=== PATIENT | female | born 1975 | race Caucasian/White ===

== ENCOUNTER 2017-03-05 18:43 | Emergency (ER) | payer MEDICAID ==
[2017-03-05] MEDS ORDERED: NS 1,000 ML IV ONE (19:24)
[2017-03-05] MEDS ORDERED: fentaNYL 100 MCG/2 ML INJ IVP ONE (19:24)
--- NOTE | 2017-03-05 19:30 | EDPHY ---
HPI/HX/ROS/PE/MDM Narrative: CHIEF COMPLAINT: Nausea, diarrhea, chills HISTORY OF PRESENT ILLNESS: The patient is a 41 y/o female with a history of anxiety and fibromyalgia complaining of nausea, diarrhea, and chills since taking a single dose of naltrexone on , 4 days ago. Patient has been on chronic oxycodone for pain management of her fibromyalgia for quite some time ; her stage setting painter apprentice added naltrexone on to help control inflammation from her fibromyalgia. she took her first dose of naltrexone and several hours later also took her oxycodone to avoid withdrawal. She began experiencing stomach cramps, diarrhea, and shakiness. Her symptoms have continued with chills and hot and cold flashes. She called her doctor again today who directed her to the ED. Over the last two hours her symptoms have gotten worse. She has associated neck pain. She denies cough, headache, or other associated symptoms. She denies history of diabetes or illicit drug use. She had the flu vaccine. She should be having her menses soon. She does not use control. No fever, chest pain, shortness of breath, palpitations, vomiting, urinary complaints, headache, lightheadedness. Reports no blood in the diarrhea. REVIEW OF SYSTEMS: Aside from elements discussed in the HPI, a comprehensive 10-point review of systems was reviewed and is negative. PAST MEDICAL HISTORY: Fibromyalgia, anxiety SOCIAL HISTORY: Daughter at bedside, employed, lives in [place] VITAL SIGNS: Reviewed by me GENERAL: Tremulous, diaphoretic, well-developed, well-nourished, resting comfortably in no respiratory distress. HEENT: Atraumatic. Eyes: No icterus, no injection. Mouth: moist mucous membranes. No erythema or lesions. Neck: supple with no adenopathy. LUNGS: Clear to auscultation bilaterally, no wheezes, rhonchi or rales. CARDIAC: Regular rate and rhythm, no rubs, murmurs or gallops. ABDOMEN: Mild diffuse tenderness, focal tenderness in the left lower quadrant, soft, nondistended, bowel sounds normal. BACK: No CVA tenderness. EXTREMITIES: No trauma. No edema. Range of motion is normal throughout. NEURO: Alert and oriented, grossly nonfocal. SKIN: Clammy, no rash. PSYCHIATRIC: Normal mentation, no agitation. (Mayra De Souza) ED Course: The chronic pain patient on chronic opiates presents with nausea, diarrhea, and chills after a taking a dose of naltrexone on . On exam she is clammy, diaphoretic, and tremulous with a diffuse abdominal tenderness, focal in the left lower quadrant. IV was placed. Patient received Zofran. Laboratory evaluation demonstrates a white count of 11,500. Electrolytes are unremarkable. Urinalysis demonstrates nitrates, 4+ bacteria, 15-25 white cells per high-power field. Patient denies complaints related to urinary tract infection. She states that she urinates frequently but that is not unusual for her. She denies any dysuria. She has no flank pain. On re-examination the patient continues to have rather focal left lower quadrant tenderness as well as development of some right lower quadrant tenderness. CT scan abdomen pelvis was obtained. Patient received a dose of ciprofloxacin in the emergency department. She notes that she has multiple allergies including erythromycin and penicillins although she cannot specifically tell me what happens when she takes either of those medications the, other than she thinks that cause a rash. Patient's care was assumed by Dr. Pastora Bautista at 9:20 p.m.. We are awaiting further evaluation including CT scan abdomen pelvis as well as lactic acid. (Mayra De Souza) 2200: I was asked to follow up this patient's CT scan results. The CT scan abdomen pelvis with IV contrast shows no acute inflammatory process. Has a normal appendix. Significant stool burden on the right ascending colon and transverse colon. Additionally there are liver lesions that appear to be hemangiomas but need an outpatient follow-up ultrasound or MRI of the liver. I have discussed this with the patient. She distally has a UTI on her lab work will treat for UTI. Most likely cause of abdominal pain is UTI and constipation. Normal appendix. Additionally I discussed this with the patient. Return precautions given she understands return emergency room if she develops worsening abdominal pain fever vomiting. (Ananth Silva) - Data Points Laboratory Results: Laboratory Results 03/05/17 19:54 03/05/17 19:54 03/05/17 03/05/17 03/05/17 21:50 21:50 21:26 WBC RBC Hgb Hct MCV MCH MCHC RDW Plt Count MPV Neut % (Auto) Lymph % (Auto) [place] % (Auto) Eos % (Auto) Baso % (Auto) Nucleat RBC Rel Count Absolute Neuts (auto) Absolute Lymphs (auto) Absolute Monos (auto) Absolute Eos (auto) Absolute Basos (auto) Absolute Nucleated RBC Immature Gran % Immature Gran # PT Pending INR Pending APTT Pending VBG Lactic Acid 0.8 mmol/L mmol/L (0.7-2.1) Sodium Potassium Chloride Carbon Dioxide Anion Gap BUN Creatinine Estimated GFR Glucose Calcium Total Bilirubin Pending Conjugated Bilirubin Unconjugated Bilirubin AST ALT Alkaline Phosphatase Total Protein Albumin Lipase Beta HCG, Qual Urine Color Urine Appearance Urine pH Ur Specific [place] Urine Protein Urine Ketones Urine Blood Urine Nitrate Urine Bilirubin Urine Urobilinogen Ur Leukocyte Esterase Urine RBC Urine WBC Ur Epithelial Cells Urine Bacteria Urine Mucus Urine Glucose 03/05/17 03/05/17 03/05/17 20:18 19:54 19:54 WBC RBC Hgb Hct MCV MCH MCHC RDW Plt Count MPV Neut % (Auto) Lymph % (Auto) [place] % (Auto) Eos % (Auto) Baso % (Auto) Nucleat RBC Rel Count Absolute Neuts (auto) Absolute Lymphs (auto) Absolute Monos (auto) Absolute Eos (auto) Absolute Basos (auto) Absolute Nucleated RBC Immature Gran % Immature Gran # PT INR APTT VBG Lactic Acid Sodium 141 mEq/L mEq/L (134-144) Potassium 3.8 mEq/L mEq/L (3.5-5.2) Chloride 101 mEq/L mEq/L (97-110) Carbon Dioxide 25 mEq/l mEq/l (22-31) Anion Gap 15 mEq/L mEq/L (8-16) BUN 17 mg/dL mg/dL (7-23) Creatinine 0.9 mg/dL mg/dL (0.6-1.0) Estimated GFR > 60 Glucose 110 mg/dL H mg/dL (70-100) Calcium 9.9 mg/dL mg/dL (8.5-10.4) Total Bilirubin 0.4 mg/dL mg/dL (0.1-1.4) Conjugated Bilirubin 0.3 mg/dL mg/dL (0.0-0.5) Unconjugated Bilirubin 0.1 mg/dL mg/dL (0.0-1.1) AST 18 IU/L IU/L (14-46) ALT 33 IU/L IU/L (9-52) Alkaline Phosphatase 90 IU/L IU/L (38-126) Total Protein 8.2 g/dL g/dL (6.3-8.2) Albumin 4.4 g/dL g/dL (3.5-5.0) Lipase 73 IU/L IU/L (23-300) Beta HCG, Qual NEGATIVE Urine Color YELLOW Urine Appearance HAZY Urine pH 6.0 (5.0-7.5) Ur Specific [place] 1.026 (1.002-1.030) Urine Protein NEGATIVE (NEGATIVE) Urine Ketones NEGATIVE (NEGATIVE) Urine Blood NEGATIVE (NEGATIVE) Urine Nitrate POSITIVE H (NEGATIVE) Urine Bilirubin NEGATIVE (NEGATIVE) Urine Urobilinogen NEGATIVE EU EU (0.2-1.0) Ur Leukocyte Esterase 1+ H (NEGATIVE) Urine RBC 1-3 /hpf /hpf (0-3) Urine WBC 15-25 /hpf H /hpf (0-3) Ur Epithelial Cells TRACE /lpf /lpf (NONE-1+) Urine Bacteria 4+ /hpf H /hpf (NONE SEEN) Urine Mucus TRACE /lpf /lpf (NONE-1+) Urine Glucose NEGATIVE (NEGATIVE) 03/05/17 19:54 WBC 11.51 10^3/uL H 10^3/uL (3.80-9.50) RBC 4.64 10^6/uL 10^6/uL (4.18-5.33) Hgb 14.0 g/dL g/dL (12.6-16.3) Hct 41.4 % % (38.0-47.0) MCV 89.2 fL fL (81.5-99.8) MCH 30.2 pg pg (27.9-34.1) MCHC 33.8 g/dL g/dL (32.4-36.7) RDW 13.2 % % (11.5-15.2) Plt Count 292 10^3/uL 10^3/uL (150-400) MPV 10.8 fL fL (8.7-11.7) Neut % (Auto) 64.8 % % (39.3-74.2) Lymph % (Auto) 27.7 % % (15.0-45.0) [place] % (Auto) 5.0 % % (4.5-13.0) Eos % (Auto) 1.6 % % (0.6-7.6) Baso % (Auto) 0.6 % % (0.3-1.7) Nucleat RBC Rel Count 0.0 % % (0.0-0.2) Absolute Neuts (auto) 7.47 10^3/uL H 10^3/uL (1.70-6.50) Absolute Lymphs (auto) 3.19 10^3/uL H 10^3/uL (1.00-3.00) Absolute Monos (auto) 0.57 10^3/uL 10^3/uL (0.30-0.80) Absolute Eos (auto) 0.18 10^3/uL 10^3/uL (0.03-0.40) Absolute Basos (auto) 0.07 10^3/uL 10^3/uL (0.02-0.10) Absolute Nucleated RBC 0.00 10^3/uL 10^3/uL (0-0.01) Immature Gran % 0.3 % % (0.0-1.1) Immature Gran # 0.03 10^3/uL 10^3/uL (0.00-0.10) PT INR APTT VBG Lactic Acid Sodium Potassium Chloride Carbon Dioxide Anion Gap BUN Creatinine Estimated GFR Glucose Calcium Total Bilirubin Conjugated Bilirubin Unconjugated Bilirubin AST ALT Alkaline Phosphatase Total Protein Albumin Lipase Beta HCG, Qual Urine Color Urine Appearance Urine pH Ur Specific [place] Urine Protein Urine Ketones Urine Blood Urine Nitrate Urine Bilirubin Urine Urobilinogen Ur Leukocyte Esterase Urine RBC Urine WBC Ur Epithelial Cells Urine Bacteria Urine Mucus Urine Glucose Medications Given: Discontinued Medications Cephalexin (Keflex 500 Mg Prepack#4) 1 btl TAKEHOME EDNOW ONE PRN Reason: Protocol Stop: 03/05/17 20:48 Last Admin: 03/05/17 20:57 Dose: Not Given Cephalexin HCl (Keflex) 500 mg PO EDNOW ONE PRN Reason: Protocol Stop: 03/05/17 20:48 Last Admin: 03/05/17 20:56 Dose: Not Given Ciprofloxacin (Cipro) 500 mg PO EDNOW ONE PRN Reason: Protocol Stop: 03/05/17 20:50 Last Admin: 03/05/17 20:52 Dose: 500 mg Ciprofloxacin (Cipro 500mg Prepack#2) 1 btl TAKEHOME EDNOW ONE Stop: 03/05/17 20:50 Last Admin: 03/05/17 20:52 Dose: 1 btl Fentanyl (Sublimaze) 75 mcg IVP EDNOW ONE Stop: 03/05/17 19:25 Last Admin: 03/05/17 19:50 Dose: Not Given Sodium Chloride (Ns) 1,000 mls @ 0 mls/hr IV EDNOW ONE; Wide Open PRN Reason: Protocol Stop: 03/05/17 19:25 Last Admin: 03/05/17 19:49 Dose: 1,000 mls Ondansetron HCl (Zofran) 4 mg IVP EDNOW ONE Stop: 03/05/17 19:32 Last Admin: 03/05/17 19:49 Dose: 4 mg General Time Seen by Provider: 03/05/17 19:08 Initial Vital Signs: Initial Vital Signs Temperature (C) 36.7 C 03/05/17 18:45 Heart Rate 92 03/05/17 18:45 Respiratory Rate 22 H 03/05/17 18:45 Blood Pressure 125/91 H 03/05/17 18:45 O2 Sat (%) 100 03/05/17 18:45 O2 Delivery Mode Room Air Allergies/Adverse Reactions: acetaminophen [From Vicodin] Allergy (Intermediate, Verified 03/05/17 18:48) Hives erythromycin base [Erythromycin Base] Allergy (Verified 03/05/17 18:45) Itching hydrocodone bitartrate [From Vicodin] Allergy (Verified 03/05/17 18:45) Penicillins Allergy (Verified 03/05/17 18:45) Itching Home Medications: Medication Instructions Recorded Carisoprodol [Soma (*)] 350 mg PO TIDMEAL 03/05/17 Ciprofloxacin [Cipro] 500 mg PO BID #6 tab 03/05/17 Escitalopram Oxalate [Lexapro] 10 mg PO 03/05/17 LORazepam [Ativan (*)] 1 mg PO 03/05/17 Metaxalone [Skelaxin 800 mg (*)] 800 mg PO 03/05/17 Naltrexone HCl 50 mg PO 03/05/17 Nortriptyline HCl [Pamelor 10 mg 10 mg PO HS 03/05/17 (*)] Ondansetron Odt [Zofran Odt 4 mg 4 mg PO Q6 PRN #8 tab 03/05/17 (RX)] Venlafaxine HCl [Venlafaxine 25MG 25 mg PO 03/05/17 (*)] oxyCODONE/APAP 5/325 [Percocet 1 tab PO 03/05/17 5/325 (*)] Departure - Departure Disposition: Home, Routine, Self-Care Clinical Impression: Chills Diarrhea Qualifiers: Diarrhea type: unspecified type Qualified Code(s): R19.7 - Diarrhea, unspecified Urinary tract infection Qualifiers: Urinary tract infection type: site unspecified Hematuria presence: without hematuria Qualified Code(s): N39.0 - Urinary tract infection, site not specified Condition: Good Instructions: Urinary Tract Infection in Women (ED), Opioid Withdrawal (ED) Additional Instructions: You been given a prescription for Zofran. Please use this as needed for ongoing nausea. Please drink plenty of fluids and get plenty of rest. Please take antibiotics as directed. Ciprofloxacin 500 mg by mouth 2 times a day for 3 days. Please contact your primary stage setting painter apprentice with respect to this significant reaction to naltrexone. Return to the emergency department or seek care urgently if you are worsening despite the above measures. Additionally you have some liver lesions that need follow-up you need an ultrasound of her liver at some point or an MRI of her liver with her primary care doctor. This can be done in the next few weeks. Referrals: NONE *PRIMARY CARE P,. [Primary Care Provider] - As per Instructions Prescriptions: Ciprofloxacin [Cipro] 500 mg PO BID #6 tab Ondansetron Odt [Zofran Odt 4 mg (RX)] 4 mg PO Q6 PRN #8 tab PRN Reason: Nausea Report Scribed for: Mayra De Souza Report Scribed by: Hilary Mendoza Date of Report: 03/05/17 Time of Report: 19:12 Physician Review and Approval Statement: Portions of this note were transcribed by a medical charge entry specialist. I personally performed a history, physical exam, medical decision making, and confirmed accuracy of information the transcribed note.
[2017-03-05] MEDS ORDERED: ONDANSETRON 4 MG/2 ML VIAL IVP ONE (19:31)
[2017-03-05 20:02] LABS: PLATELET COUNT 292 10^3/uL (150-400)
[2017-03-05] MEDS ORDERED: CEPHALEXIN 500MG PREPACK#4 BTL TAKEHOME ONE (20:47)
[2017-03-05] MEDS ORDERED: CEPHALEXIN 500 MG CAP PO ONE (20:47)
[2017-03-05] MEDS ORDERED: CIPROFLOXACIN 500MG PREPACK#2 BTL TAKEHOME ONE (20:49)
[2017-03-05] MEDS ORDERED: CIPROFLOXACIN 500 MG TAB PO ONE (20:49)
[2017-03-05] MEDS ORDERED: IOPAMIDOL (ISOVUE-300) 100 ML BTL ONE (21:04)
[2017-03-05] MEDS ORDERED: ONDANSETRON 4MG PREPACK#2 BTL TAKEHOME ONE (22:02)
[2017-03-05 22:03] LABS: INR 0.91 (0.83-1.16); PROTIME(PATIENT) 12.5 SEC (12.0-15.0)
[2017-03-05] MEDS ORDERED: PROMETHAZINE 25 MG PREPACK #4 BTL TAKEHOME ONE (22:11)
[2017-03-05 22:35] VITALS: BP 130/87; PULSE 81; RESP 16; TEMP 97.9; O2SAT 95
== END 2017-03-05 22:34 | disposition home or self-care (01) ==
DX: R68.83 Chills (without fever) (principal); R19.7 Diarrhea, unspecified; N39.0 Urinary tract infection, site not specified; E86.9 Volume depletion, unspecified
CPT/HCPCS: 96374; J2405; J3010; Q9967